=== PATIENT | female | born 1965 | race Caucasian/White ===

== ENCOUNTER 2024-12-20 05:50 | Day surgery (SDC) | payer BC ==
[2024-12-16 08:23] VITALS: BMI 36.9
[2024-12-20] MEDS ORDERED: PROPOFOL 40 ML ONE (07:21)
[2024-12-20] MEDS ORDERED: Lidocaine 2% MPF 10 ML AMP (For Epidural Use) ONE (07:21)
== END 2024-12-20 08:46 | disposition home or self-care (01) ==
LOC: CSHSDC 05:50
PROVIDERS: ATTEND Surgery
PROC: 0DJD8ZZ Inspection of Lower Intestinal Tract, Via Natural or Artificial Opening Endoscopic (ICD-10-PCS; principal; 2024-12-20)
DX: Z12.11 Encounter for screening for malignant neoplasm of colon (principal); K64.4 Residual hemorrhoidal skin tags; K64.1 Second degree hemorrhoids; I10 Essential (primary) hypertension; E66.01 Morbid (severe) obesity due to excess calories; Z68.36 Body mass index [BMI] 36.0-36.9, adult; Z98.84 Bariatric surgery status; Z96.652 Presence of left artificial knee joint; Z88.2 Allergy status to sulfonamides; Z88.5 Allergy status to narcotic agent; Z91.048 Other nonmedicinal substance allergy status
CPT/HCPCS: J2704